=== PATIENT | female | born 1965 | race Caucasian/White ===

== ENCOUNTER 2016-06-29 15:31 | Emergency (ER) | payer OTHER ==
[~2016-06-29] VITALS: Ht 167.6 cm; Wt 63.7 kg
[~2016-06-29 15:31] MED LIST: ACAMPROSATE CA333 MG PO; ATORVASTATIN CA20 MG PO; BUPROPION XL300 MG PO; CLONIDINE HCL0.1 MG PO; DULOXETINE HCL60 MG PO; FLEXERIL10 MG PO; FOLIC ACID1 MG PO; GABAPENTIN300 MG PO; INCRUSE ELLI62.5 MCG IH; LEVETIRACETAM500 MG PO; LISINOPRIL5 MG PO; LORCET PLUS PO; METHOCARBAMOL750 MG PO; NAPROSYN500 MG PO; NORCO 5/3251 TABLET PO; NORCO 7.5/321 TABLET PO; OMEPRAZOLE20 MG PO; PERCOCET 5/31 TABLET PO; PREDNISONE10 MG PO; PROVENTIL17 G1 IH; QUETIAPINE FUM200 MG PO; SPIRIVA1 INHALATI IH; VALIUM5 MG PO
[2016-06-29 20:56] VITALS: BP 119/84
== END 2016-06-29 20:56 | disposition home or self-care (01) ==
LOC: EME 15:31
PROC: 2W3QX1Z Immobilization of Right Lower Leg using Splint (ICD-10-PCS; principal; 2016-06-29)
DX: S93.401A Sprain of unspecified ligament of right ankle, initial encounter (principal); M54.5 Low back pain; W01.0XXA Fall on same level from slipping, tripping and stumbling without subsequent striking against object, initial encounter
CPT/HCPCS: 73610; 99281; 99284